=== PATIENT | male | born 1990 | race Caucasian/White ===

== ENCOUNTER 2018-12-23 15:39 | Emergency (ER) | payer BC, OTHER ==
[2018-12-23] MEDS ORDERED: traMADol 50 MG Tab PO ONE (15:56)
[2018-12-23] MEDS ORDERED: Ketorolac 60 MG/2 ML SDV IM ONE (16:01)
--- NOTE | 2018-12-23 16:01 | EDM.PDOC ---
ED HPI GENERAL MEDICAL PROBLEM - General Chief Complaint: Lower Extremity Injury/Pain Stated Complaint: FALL LOWER BACK/HIP INJURY Time Seen by Provider: 12/23/18 15:50 - History of Present Illness INITIAL COMMENTS - FREE TEXT/NARRATIVE: HISTORY AND PHYSICAL: History of present illness: The patient is a healthy 28-year-old male who had no systemic complaints prior to slipping and falling on the ice earlier today. The patient says that he lost his footing and fell forward and slightly to the left side but did not his head pass out or blackout. He did not hit his face has no facial pain. Since that time he has had pain to his lateral and posterior right hip area and soft tissue region but no midline back pain or neck pain. He has no discrete abdominal complaints. He's had no nausea or vomiting and he says it's painful when he puts weight on his left leg but he doesn't have specific hip or leg pain. Vazquez ibuprofen prior to coming here. Review of systems: As per history of present illness and below otherwise all systems reviewed and negative. Past medical history: As per history of present illness and as reviewed below otherwise noncontributory. Surgical history: As per history of present illness and as reviewed below otherwise noncontributory. Social history: No reported history of drug or alcohol abuse. Family history: As per history of present illness and as reviewed below otherwise noncontributory. Physical exam: General: Well-developed well-nourished very overweight man who is nontoxic and interactive in the ED. Vital signs were noted by me. HEENT: Atraumatic, normocephalic, there is no evidence of any soft tissue or bony facial injuries teeth and bite are intact, negative for conjunctival pallor or scleral icterus, mucous membranes moist, throat clear, neck supple, nontender, trachea midline. Lungs: Clear to auscultation, breath sounds equal bilaterally, chest nontender. Heart: S1S2, regular rate and rhythm no overt murmurs Abdomen: Soft, nondistended, nontender. NABS and there is no soft tissue injury such as ecchymosis erythema or soft tissue swelling of the anterior abdominal wall. Negative for costovertebral tenderness. Pelvis: Stable nontender. There is some minimal tenderness at the posterior pelvis on the left near the hip area and SI joint. At the posterior pelvis there is a large area of ill-defined soft tissue swelling clearly is atypical and not present on the right side. There is tenderness with palpation in this area but the skin and the region is not erythematous or ecchymotic. Genitourinary: Deferred. Rectal: Deferred. Extremities: Atraumatic, full range of motion without defects or deficits Neurovascular unremarkable. Neuro: Awake, alert, oriented. Cranial nerves II through XII unremarkable. Cerebellum unremarkable. Motor and sensory unremarkable throughout. Exam nonfocal. Back: There are no midline step-offs tenderness defects of the thoracic or lumbar spine. When the patient is standing in the ED, which is his preferred place for comfort, prefers not to put weight on his leg not because his back or legs hurt but because the soft tissue area at his posterior pelvis is uncomfortable. Diagnostics: X-ray of left hip with pelvis, CT scan of the abdomen and pelvis to evaluate the posterior pelvis soft tissue injury Please note that facility maintenance technician told me that she would cancel the x-ray of the hip and pelvis and include bony windows to evaluate this area and sent to the radiologist with the CAT scan. Therapeutics: Tramadol Toradol Patient was offered Toradol but says that he has a fear of needles and declined the shot. The patient is aware of all testing results and I will give him diclofenac and tramadol for home. Impression: Fall with soft tissue left back contusion Definitive disposition and diagnosis as appropriate pending reevaluation and review of above. lower back Pain Score (Numeric/FACES): 5 - Related Data Allergies Allergy/AdvReac Type Severity Reaction Status Date / Time Penicillins Allergy Cannot Verified 12/23/18 15:47 Remember Home Meds: Home Meds . [No Known Home Meds] 05/25/14 [History] Past Medical History HEENT History: Reports: None Cardiovascular History: Reports: None Respiratory History: Reports: None Gastrointestinal History: Reports: None Genitourinary History: Reports: None Musculoskeletal History: Reports: None Neurological History: Reports: None Psychiatric History: Reports: None Endocrine/Metabolic History: Reports: None Hematologic History: Reports: None Immunologic History: Reports: None Oncologic (Cancer) History: Reports: None Dermatologic History: Reports: None - Past Surgical History Head Surgeries/Procedures: Reports: None HEENT Surgical History: Reports: None Cardiovascular Surgical History: Reports: None Respiratory Surgical History: Reports: None GI Surgical History: Reports: None Male Surgical History: Reports: None Endocrine Surgical History: Reports: None Neurological Surgical History: Reports: None Musculoskeletal Surgical History: Reports: Other (See Below) Other Musculoskeletal Surgeries/Procedures:: bilateral wirst fracture/surgery Oncologic Surgical History: Reports: None Dermatological Surgical History: Reports: None Social & Family History - Family History Family Medical History: Noncontributory - Tobacco Use Smoking Status *Q: Never Smoker Second Hand Smoke Exposure: No - Caffeine Use Caffeine Use: Reports: Coffee, Tea - Recreational Drug Use Recreational Drug Use: No Review of Systems - Review of Systems Review Of Systems: ROS reveals no pertinent complaints other than HPI. ED EXAM, GENERAL - Physical Exam Exam: See Below (See dictation) Course - Vital Signs Last Recorded V/S: Last Vital Signs Temp 36.4 C 12/23/18 15:48 Pulse 106 H 12/23/18 15:48 Resp 20 12/23/18 15:48 BP 119/96 H 12/23/18 15:48 Pulse Ox 95 12/23/18 15:48 - Orders/Labs/Meds Meds: Medications Discontinued Medications Generic Name Dose Route Start Last Admin Trade Name Mayco PRN Reason Stop Dose Admin Ketorolac Tromethamine 60 mg 12/23/18 16:01 12/23/18 16:04 Toradol IM 12/23/18 16:02 Not Given ONETIME ONE Tramadol HCl 50 mg 12/23/18 15:56 12/23/18 16:02 Ultram PO 12/23/18 15:57 50 mg ONETIME ONE Administration Departure - Departure Time of Disposition: 18:32 Disposition: Home, Self-Care 01 Condition: Good Clinical Impression: Fall Qualifiers: Encounter type: initial encounter Qualified Code(s): W19.XXXA - Unspecified fall, initial encounter Contusion of lower back Qualifiers: Encounter type: initial encounter Qualified Code(s): S30.0XXA - Contusion of lower back and pelvis, initial encounter - Discharge Information Referrals: Madan Black MD [Primary Care Provider] - Forms: ED Department Discharge Additional Instructions: The following information is given to patients seen in the emergency department who are being discharged to home. This information is to outline your options for follow-up care. We provide all patients seen in our emergency department with a follow-up referral. The need for follow-up, as well as the timing and circumstances, are variable depending upon the specifics of your emergency department visit. If you don't have a primary care physician on staff, we will provide you with a referral. We always advise you to contact your personal physician following an emergency department visit to inform them of the circumstance of the visit and for follow-up with them and/or the need for any referrals to a consulting specialist. The emergency department will also refer you to a specialist when appropriate. This referral assures that you have the opportunity for followup care with a specialist. All of these measure are taken in an effort to provide you with optimal care, which includes your followup. Under all circumstances we always encourage you to contact your private physician who remains a resource for coordinating your care. When calling for followup care, please make the office aware that this follow-up is from your recent emergency room visit. If for any reason you are refused follow-up, please contact the [facility] emergency department at and ask to speak to the emergency department charge nurse. [facility] Primary care- [place] [address] Use ice to areas of swelling for the next few days and expect aches and pains for the next several days to one week. Use medications as needed and prescribed. Call and schedule a follow-up appointment in the clinic with one of our providers or with your provider next few days for reevaluation and further care as needed. Return to ER as needed and as discussed
--- NOTE | 2018-12-23 18:16 | CT ---
INDICATION: Fall with left lateral soft tissue swelling posterior pelvis, pain TECHNIQUE: CT abdomen and pelvis without contrast. COMPARISON: None FINDINGS: Lower chest: Unremarkable. Liver: Unremarkable. Spleen: Unremarkable. Pancreas: Unremarkable. Gallbladder and bile ducts: Unremarkable. Kidneys: Unremarkable. No kidney or ureteral stones and no hydronephrosis. Adrenal glands: Unremarkable. GI tract: Unremarkable. Appendix is normal. Vascular structures: Unremarkable. Lymph nodes: Unremarkable. Miscellaneous: Fat containing umbilical hernia. No free air or significant free fluid. Pelvic Organs: Unremarkable. Bones: Bilateral L5 pars defects with no associated spondylolisthesis. Degenerative changes lower thoracic and upper lumbar spine. IMPRESSION: No evidence of acute trauma. Bilateral L5 pars defects with no associated spondylolisthesis. Dictated by Michael Workman MD @ 12/23/2018 6:14:29 PM Please note that all CT scans at this facility use dose modulation, iterative reconstruction, and/or weight-based dosing when appropriate to reduce radiation dose to as low as reasonably achievable. Dictated by: Michael Workman MD @ 12/23/2018 18:14:34 (Electronically Signed)
[2018-12-23 18:50] VITALS: BP 129/74
== END 2018-12-23 18:46 | disposition home or self-care (01) ==
LOC: MW.ED 15:39
DX: S30.0XXA Contusion of lower back and pelvis, initial encounter (principal); Z88.0 Allergy status to penicillin; W00.9XXA Unspecified fall due to ice and snow, initial encounter
CPT/HCPCS: 74176; 99284; A9270